=== PATIENT | male | born 2000 | race Caucasian/White ===

== ENCOUNTER 2020-09-04 20:09 | Emergency (ER) | payer MEDICAID ==
[~2020-09-04] VITALS: Ht 177.8 cm; Wt 62.0 kg
[2020-09-04] MEDS: KETOROLAC 30MG/ML VIAL IM ONE ×2 (22:51→22:55)
[2020-09-04 23:19] VITALS: BP 141/74
== END 2020-09-04 23:19 | disposition home or self-care (01) ==
LOC: ER 20:09
DX: M25.512 Pain in left shoulder (principal); R07.2 Precordial pain; M54.5 Low back pain; V49.40XA Driver injured in collision with unspecified motor vehicles in traffic accident, initial encounter; Y93.89 Activity, other specified; Y92.488 Other paved roadways as the place of occurrence of the external cause
CPT/HCPCS: 71045; 73030; 96372; 99284; J1885

== ENCOUNTER 2024-07-17 23:36 | Emergency (ER) | payer MEDICAID, OTHER ==
[~2024-07-17] VITALS: Ht 177.8 cm; Wt 68.0 kg
[2024-07-17 23:42] VITALS: BP 138/92; PULSE 107; RESP 16; O2SAT 96
[2024-07-18] MEDS ORDERED: ACETAMINOPHEN 325MG TABLET PO ONE
== END 2024-07-18 00:10 | disposition home or self-care (01) ==
LOC: ER 23:36
DX: S80.211A Abrasion, right knee, initial encounter (principal); W18.39XA Other fall on same level, initial encounter; Y93.89 Activity, other specified; Y92.89 Other specified places as the place of occurrence of the external cause; Y99.8 Other external cause status
CPT/HCPCS: 99283